=== PATIENT | male | born 1975 | race African-American/Black ===

== ENCOUNTER 2018-01-28 15:00 | Emergency (ER) | payer OTHER ==
[~2018-01-28] VITALS: Ht 188 cm; Wt 90.9 kg
[2018-01-28 15:04] VITALS: BP 157/98; TEMP 97.6
[2018-01-28] MEDS ORDERED: ZOLOFT 100MG100 MG PO (15:45)
[2018-01-28] MEDS ORDERED: KLONOPIN 0.5MG0.5 MG PO (15:55)
[2018-01-28 16:10] VITALS: PULSE 71
== END 2018-01-28 16:11 | disposition home or self-care (01) ==
LOC: COL.ER 15:00
DX: F41.0 Panic disorder [episodic paroxysmal anxiety] (principal); Z87.891 Personal history of nicotine dependence